=== PATIENT | female | born 1975 | race Caucasian/White ===

== ENCOUNTER 2020-11-13 17:14 | Day surgery (SDCO) | payer OTHER ==
[~2020-11-13] VITALS: Ht 162.6 cm; Wt 113.1 kg
[~2020-11-13 17:14] MED LIST: ARMOUR THYROID90 MG PO; FOLIC ACID1 MG PO; HCTZ12.5 MG PO; KLOR-CON 1010 MEQ PO; LASIX20 MG PO; MAG-OXIDE 400M400 MG PO; ROCALTROL 0.0.25 MCG PO; b12 complex; calcium
[2020-11-13 17:56] LABS: BASOPHIL 0.3 % (0-2); EOSINOPHIL 0.4 % (0-5); HCT 40.8 % (37.0-47.0); HGB 13.4 g/dl (12.5-16.0); LYMPHOCYTE 11.5 % (15-48); MCH 28.3 pg (25.0-31.0); MCHC 32.8 g/dL (32.0-36.0); MCV 86.1 fL (78.0-100.0); MONOCYTE 4.4 % (0-12); MPV 9.8 fL (6.0-9.5); NRBC 0; PLT 394 K/uL (150-400); RBC 4.74 M/uL (4.20-5.40); RDW 13.2 % (11.5-14.0); WBC 11.6 K/uL (4.0-10.5)
[2020-11-13 18:21] LABS: ALBUMIN 3.4 g/dL (3.4-5.0); BILIRUBIN - TOTAL 0.3 mg/dL (0.2-1.0); BUN/CREAT RATIO (CALC) 14.8 RATIO; CREATININE 0.88 mg/dL (0.51-0.95); GLOBULIN (CALCULATION) 5.7 g/dL; POTASSIUM 2.9 mmol/L (3.5-5.1); TOTAL PROTEIN 9.1 g/dL (6.4-8.2)
[2020-11-13 20:47] LABS: CORONAVIRUS 2019 SARS-COV-2 NEGATIVE (NEGATIVE); INFLUENZA A NAA NEGATIVE (NEGATIVE)
[2020-11-13] MEDS ORDERED: ROCALTROL 0.0.25 MCG PO (21:29)
[2020-11-13] MEDS ORDERED: K-DUR20 MEQ PO (21:30)
[2020-11-13] MEDS ORDERED: ARMOUR THYROID90 MG PO (21:31)
[2020-11-13] MEDS ORDERED: ARMOUR THYROID30 MG PO (21:31)
[2020-11-13] MEDS ORDERED: CALCIUM CITRATE PO (21:32)
[2020-11-14 00:59] LABS: BUN/CREAT RATIO (CALC) 16.7 RATIO; CREATININE 0.9 mg/dL (0.51-0.95); POTASSIUM 3.1 mmol/L (3.5-5.1)
[2020-11-14 05:48] LABS: BASOPHIL 0.2 % (0-2); EOSINOPHIL 0.7 % (0-5); HGB 11.8 g/dl (12.5-16.0); LYMPHOCYTE 19.3 % (15-48); MCH 28.4 pg (25.0-31.0); MCHC 32.8 g/dL (32.0-36.0); MCV 86.5 fL (78.0-100.0); MONOCYTE 4.5 % (0-12); MPV 9.8 fL (6.0-9.5); NRBC 0; PLT 344 K/uL (150-400); RBC 4.16 M/uL (4.20-5.40); RDW 13.2 % (11.5-14.0); WBC 9.8 K/uL (4.0-10.5)
[2020-11-14 06:18] LABS: BUN/CREAT RATIO (CALC) 15.5 RATIO; CREATININE 0.84 mg/dL (0.51-0.95); POTASSIUM 3.8 mmol/L (3.5-5.1)
[2020-11-14 06:25] LABS: MAGNESIUM 2.3 mg/dL (1.8-2.4)
[2020-11-14 16:55] LABS: BUN/CREAT RATIO (CALC) 14.8 RATIO; CREATININE 0.81 mg/dL (0.51-0.95); POTASSIUM 3.6 mmol/L (3.5-5.1)
[2020-11-15 05:43] LABS: HCT 35.5 % (37.0-47.0); HGB 11.6 g/dl (12.5-16.0); MCHC 32.7 g/dL (32.0-36.0); MCV 88.8 fL (78.0-100.0); RDW 13.5 % (11.5-14.0); WBC 6.3 K/uL (4.0-10.5)
[2020-11-15 06:06] LABS: BUN/CREAT RATIO (CALC) 16.7 RATIO; CREATININE 0.72 mg/dL (0.51-0.95); POTASSIUM 4.3 mmol/L (3.5-5.1)
[2020-11-15 16:55] LABS: BUN/CREAT RATIO (CALC) 19.8 RATIO; CREATININE 0.81 mg/dL (0.51-0.95); POTASSIUM 4.4 mmol/L (3.5-5.1)
[2020-11-17 11:07] LABS: CALCIUM, SERUM 7.4 mg/dL (8.7-10.2); PTH, INTACT 12 pg/mL (15-65)
== END 2020-11-15 18:30 | disposition home or self-care (01) ==
LOC: FER 17:14 → FMS 19:20
PROVIDERS: Emergency Medicine; Hospitalist; Nurse Practitioner; ADMIT Internal Medicine
DX: E83.51 Hypocalcemia (principal); E87.6 Hypokalemia; E83.42 Hypomagnesemia; I10 Essential (primary) hypertension; E03.9 Hypothyroidism, unspecified; E20.9 Hypoparathyroidism, unspecified; F41.9 Anxiety disorder, unspecified; K52.839 Microscopic colitis, unspecified; Z86.010 Personal history of colon polyps; Z98.890 Other specified postprocedural states; Z90.49 Acquired absence of other specified parts of digestive tract; Z98.51 Tubal ligation status; Z88.0 Allergy status to penicillin; Z82.49 Family history of ischemic heart disease and other diseases of the circulatory system; Z90.09 Acquired absence of other part of head and neck; Z20.822 Contact with and (suspected) exposure to COVID-19; Z86.39 Personal history of other endocrine, nutritional and metabolic disease
CPT/HCPCS: 36415; 80048; 80053; 82310; 83735; 83970; 84100; 84443; 85025; 93005; G0378; J0610; J1650; J2405; J3475; J3480; J7050; U0002